=== PATIENT | female | born 1970 | race Caucasian/White ===

== ENCOUNTER → 2023-09-08 15:30 | Outpatient (REF) | payer BC, SELFPAY | LOC: HWWDC 15:30 | PROVIDERS: ATTENDING PHYSICIAN Physician Assistant Medical | DX: Z12.31 Encounter for screening mammogram for malignant neoplasm of breast (principal) | CPT/HCPCS: 77063; 77067 ==

== ENCOUNTER → 2025-02-27 15:42 | Outpatient (REF) | payer BC, SELFPAY | LOC: HWRAD 15:42 | PROVIDERS: ATTENDING PHYSICIAN Physician Assistant Medical | DX: Z00.00 Encounter for general adult medical examination without abnormal findings (principal) | CPT/HCPCS: 73030 ==